=== PATIENT | male | born 1950 | race Caucasian/White ===

== ENCOUNTER 2018-09-23 11:49 | Emergency (ER) | payer OTHER ==
[2018-09-23 13:01] LABS: BASOPHILS % (AUTO) 0.4 % (0.0-5.0); EOSINOPHILS % (AUTO) 3.4 % (0.0-8.0); HEMATOCRIT 35.8 % (42-54); LYMPHOCYTES % (AUTO) 27.1 % (21.0-51.0); MEAN CORPUSCULAR HEMOGLOBIN 31.3 pg (27.0-33.0); MEAN CORPUSCULAR HGB CONC 34.2 g/dL (32.0-36.0); MEAN CORPUSCULAR VOLUME 91.4 fL (79-99); MONOCYTES % (AUTO) 8.1 % (3.0-13.0); NUCLEATED RED BLOOD CELLS 0.1 % (0.0-0.19); PLATELET COUNT (AUTO) 276 K/uL (130-400); RED BLOOD CELL COUNT(AUTO) 3.92 MIL/uL (4.50-6.20); RED CELL DISTRIBUTION WIDTH 13.4 % (11.0-15.5); WHITE BLOOD COUNT (AUTO) 5.3 K/uL (4.8-10.8)
[2018-09-23 13:02] LABS: APPEARANCE,URINE Clear (CLEAR); BILIRUBIN,URINE Small (NEGATIVE); COLOR,URINE Dark Yellow (YELLOW); GLUCOSE, URINE (UA) TRACE mg/dL (NEGATIVE); KETONES,URINE Trace mg/dL (NEGATIVE); LEUKOCYTE ESTERASE ,URINE Negative (NEGATIVE); NITRATE,URINE Negative (NEGATIVE); OCCULT BLOOD,URINE Negative (NEGATIVE); PROTEIN,URINE POS 2+ (NEGATIVE)
[2018-09-23 13:10] LABS: CREATININE 1.5 mg/dL (0.5-1.5); POTASSIUM 3.9 mmol/L (3.5-5.1)
[2018-09-23 13:15] LABS: ALBUMIN 3.4 g/dL (3.5-5.0); BILIRUBIN,TOTAL 0.6 mg/dL (0.2-1.0); TOTAL PROTEIN, SERUM 6.8 g/dL (6.0-8.3)
[2018-09-23 13:30] LABS: BACTERIA,URINE Rare /HPF (None Seen); RBC,URINE None Seen /HPF (0-1); SQUAMOUS EPITHELIAL CELL,UR Rare /HPF (0-2); WBC,URINE 0-1 /HPF (0-1)
== END 2018-09-23 14:10 | disposition home or self-care (01) ==
LOC: EDH 11:49
DX: A09 Infectious gastroenteritis and colitis, unspecified (principal); I10 Essential (primary) hypertension; E11.9 Type 2 diabetes mellitus without complications; Z90.89 Acquired absence of other organs
CPT/HCPCS: 36415; 80053; 81001; 85025

== ENCOUNTER 2018-10-13 15:53 | Emergency (ER) | payer OTHER ==
[2018-10-13] MEDS ORDERED: IPRATROPIUM/ALBUTEROL SULFATE 3 ML SOLUTION IH ONE (16:13)
== END 2018-10-13 17:21 | disposition home or self-care (01) ==
LOC: EDH 15:53
DX: J20.9 Acute bronchitis, unspecified (principal); E11.9 Type 2 diabetes mellitus without complications; I10 Essential (primary) hypertension; Z85.9 Personal history of malignant neoplasm, unspecified; Z98.890 Other specified postprocedural states
CPT/HCPCS: 71046; 82948; 87804; 94640

== ENCOUNTER 2021-10-23 10:27 | Inpatient (IN) | payer MEDICARE ==
[~2021-10-23] VITALS: Ht 172.7 cm; Wt 64.0 kg
[~2021-10-23 10:27] MED LIST: AEC81 PO; ATOR10 PO; LINA5TAB PO; LISI20TA24 PO; METO25 PO; NIFE-40 PO
[2021-10-23 11:11] LABS: BASOPHILS % (AUTO) 0.4 % (0.0-5.0); EOSINOPHILS % (AUTO) 1.3 % (0.0-8.0); HEMATOCRIT 30.7 % (42-54); LYMPHOCYTES % (AUTO) 12.6 % (21.0-51.0); MEAN CORPUSCULAR HEMOGLOBIN 30.3 pg (27.0-33.0); MEAN CORPUSCULAR HGB CONC 32.9 g/dL (32.0-36.0); MEAN CORPUSCULAR VOLUME 92.2 fL (79-99); MONOCYTES % (AUTO) 5.6 % (3.0-13.0); NEUTROPHILS % (AUTO) 79.8 % (40.0-77.0); PLATELET COUNT (AUTO) 182 K/uL (130-400); RED BLOOD CELL COUNT(AUTO) 3.33 MIL/uL (4.50-6.20); RED CELL DISTRIBUTION WIDTH 13.7 % (11.0-15.5); WHITE BLOOD COUNT (AUTO) 7.1 K/uL (4.8-10.8)
[2021-10-23 11:20] LABS: CREATININE 2.3 mg/dL (0.5-1.5); POTASSIUM 4.2 mmol/L (3.5-5.1)
[2021-10-23 11:25] LABS: BILIRUBIN,TOTAL 0.6 mg/dL (0.2-1.0); TOTAL PROTEIN, SERUM 6.4 g/dL (6.0-8.3)
[2021-10-23 11:32] LABS: B-TYPE NATRIURETIC PEPTIDE 2080 pg/mL (0-100)
[2021-10-23] MEDS ORDERED: FUROSEMIDE 40MG VIAL IV ONE (12:00)
[2021-10-23] MEDS ORDERED: ASPIRIN 81MG CHEW TAB PO ONE (12:00)
[2021-10-23] MEDS ORDERED: HYDRALAZINE 25MG TABLET PO ONE (15:00)
[2021-10-23] MEDS ORDERED: FUROSEMIDE 20MG VIAL IV SCH (15:00)
[2021-10-23 15:10] LABS: HEMOGLOBIN A1C 8.5 % (4.0-6.0)
[2021-10-23 15:27] LABS: CRP QUANTITATIVE 7.7 mg/L (0.00-9.0); THYROID STIMULATING HORMONE 1.88 uIU/mL (0.36-3.74)
[2021-10-23] MEDS ORDERED: BUMETANIDE 2.5MG/10ML VIAL 40 ML IV SCH (15:30)
[2021-10-23 15:51] LABS: APPEARANCE,URINE Clear (CLEAR); BILIRUBIN,URINE Negative (NEGATIVE); COLOR,URINE Yellow (YELLOW); GLUCOSE, URINE (UA) TRACE mg/dL (NEGATIVE); KETONES,URINE Negative (NEGATIVE); LEUKOCYTE ESTERASE ,URINE Negative (NEGATIVE); NITRATE,URINE Negative (NEGATIVE); OCCULT BLOOD,URINE Negative (NEGATIVE); PH,URINE 7.5 (5.0-8.0); PROTEIN,URINE POS 1+ mg/dL (NEGATIVE); UROBILINOGEN,URINE 0.2 mg/dL (0.2-1.0)
[2021-10-23 15:58] LABS: AMPHET/METH SCREEN,URINE NEGATIVE (NEGATIVE); BARBITURATE SCREEN, URINE NEGATIVE (NEGATIVE); BENZODIAZEPINES SCREEN,URINE NEGATIVE (NEGATIVE); CANNABINOID SCREEN,URINE NEGATIVE (NEGATIVE); COCAINE SCREEN,URINE NEGATIVE (NEGATIVE); OPIATE SCREEN,URINE NEGATIVE (NEGATIVE); PHENCYCLIDINE SCREEN,URINE NEGATIVE (NEGATIVE)
[2021-10-23 16:06] LABS: BACTERIA,URINE Rare /HPF (None Seen); RBC,URINE 0-1 /HPF (0-1); SQUAMOUS EPITHELIAL CELL,UR Rare /HPF (0-2); WBC,URINE 0-1 /HPF (0-1)
[2021-10-23] MEDS ORDERED: BUMETANIDE 2.5MG/10ML VIAL 80 ML IV SCH (16:30)
[2021-10-23] MEDS ORDERED: NITROGLYCERIN 50MG/D5W 250ML 250 BOT IV SCH ×2 (19:00)
[2021-10-23] MEDS ORDERED: NITROGLYCERIN 50MG/D5W 250ML 1 BOT ONE (19:02)
[2021-10-23 20:27] LABS: CREATININE 2.3 mg/dL (0.5-1.5); POTASSIUM 3.7 mmol/L (3.5-5.1)
[2021-10-23] MEDS ORDERED: HYDRALAZINE 25MG TABLET PO SCH (21:00)
[2021-10-23] MEDS ORDERED: ATORVASTATIN 20 MG TABLET PO SCH (21:00)
[2021-10-23] MEDS ORDERED: METOPROLOL TARTRATE 25 MG TAB PO SCH (21:00)
[2021-10-23] MEDS ORDERED: HEPARIN 5,000 UNIT VIAL SQ SCH (21:00)
[2021-10-24 07:50] LABS: BASOPHILS % (AUTO) 0.1 % (0.0-5.0); EOSINOPHILS % (AUTO) 0.5 % (0.0-8.0); HEMATOCRIT 33.7 % (42-54); MEAN CORPUSCULAR HEMOGLOBIN 29.7 pg (27.0-33.0); MEAN CORPUSCULAR HGB CONC 32.3 g/dL (32.0-36.0); MEAN CORPUSCULAR VOLUME 91.8 fL (79-99); MONOCYTES % (AUTO) 4.1 % (3.0-13.0); PLATELET COUNT (AUTO) 192 K/uL (130-400); RED BLOOD CELL COUNT(AUTO) 3.67 MIL/uL (4.50-6.20); RED CELL DISTRIBUTION WIDTH 13.8 % (11.0-15.5); WHITE BLOOD COUNT (AUTO) 7.6 K/uL (4.8-10.8)
[2021-10-24 08:07] LABS: ALBUMIN 3.3 g/dL (3.5-5.0); BILIRUBIN,TOTAL 0.8 mg/dL (0.2-1.0); CREATININE 2.3 mg/dL (0.5-1.5); MAGNESIUM 1.8 mg/dL (1.80-2.40); PHOSPHORUS 4.4 mg/dL (2.5-4.9); POTASSIUM 4.1 mmol/L (3.5-5.1); TOTAL PROTEIN, SERUM 7.2 g/dL (6.0-8.3)
[2021-10-24 08:14] LABS: % IRON SATURATION 17.6 % (30-44)
[2021-10-24] MEDS ORDERED: ACETAMINOPHEN 325 MG TAB PO PRN (08:30)
[2021-10-24] MEDS ORDERED: AMLODIPINE 5 MG TAB PO SCH (09:00)
[2021-10-24] MEDS ORDERED: METOPROLOL SUCCINATE 50 MG TAB.SR.24H PO SCH (09:00)
[2021-10-24] MEDS ORDERED: ISOSORBIDE MONO 60MG SR TAB PO SCH (09:00)
[2021-10-24] MEDS: LINAGLIPTIN 5 MG TABLET PO SCH (10:30)
[2021-10-24] MEDS: HYDRALAZINE HCL 10 MG TABLET PO SCH ×3 (10:30→20:53)
[2021-10-24] MEDS: Vitamin B Complex/Vit C/Folic Acid PO SCH (10:30)
[2021-10-24] MEDS: ISOSORBIDE MONO 30MG SR TAB PO SCH (10:30)
[2021-10-24] MEDS: ASPIRIN 81 MG EC TAB PO SCH (10:30)
[2021-10-24] MEDS: METOPROLOL SUCCINATE 50 MG TAB.SR.24H PO SCH (10:30)
[2021-10-24] MEDS: BUMETANIDE 1 MG TAB PO SCH (10:30)
[2021-10-24] MEDS: INSULIN HUMULIN R 100 UNIT/ML 3ML SQ SCH ×3 (12:53→20:56)
[2021-10-24] MEDS ORDERED: COMPOUND IV MISC 1 EACH IVSOLN MISC PRN (15:30)
[2021-10-24 16:00] VITALS: BP 140/85
[2021-10-24] MEDS ORDERED: IRON SUCROSE COMPLEX 300 MG in 0.9% NACL 250ML 250 ML IVP SCH (17:00)
[2021-10-24 20:17] VITALS: BP 128/79
[2021-10-24] MEDS ORDERED: ATORVASTATIN 40 MG TABLET PO SCH (21:00)
[2021-10-25] VITALS: BP 134/84
[2021-10-25 04:00] VITALS: BP 133/75
[2021-10-25 04:13] LABS: HEMATOCRIT 28.6 % (42-54); MEAN CORPUSCULAR HEMOGLOBIN 30.4 pg (27.0-33.0); MEAN CORPUSCULAR HGB CONC 32.9 g/dL (32.0-36.0); MEAN CORPUSCULAR VOLUME 92.6 fL (79-99); PLATELET COUNT (AUTO) 178 K/uL (130-400); RED BLOOD CELL COUNT(AUTO) 3.09 MIL/uL (4.50-6.20); RED CELL DISTRIBUTION WIDTH 13.9 % (11.0-15.5); WHITE BLOOD COUNT (AUTO) 7.8 K/uL (4.8-10.8)
[2021-10-25 04:31] LABS: CREATININE 2.8 mg/dL (0.5-1.5)
[2021-10-25 04:33] LABS: BAND NEUTROPHILS % (MANUAL) 2 % (0-2); EOSINOPHILS % (MANUAL) 2 % (1-6); LYMPHOCYTES % (MANUAL) 38 % (22-44); MAN.DIFF COMMENT-IMPRESSION MANUAL DIFFERENTIAL; MONOCYTES % (MANUAL) 4 % (2-9); PLATELET MORPHOLOGY COMMENT ADEQUATE; SEGMENTED NEUTROPHILS % 54 % (40-70)
[2021-10-25 04:52] LABS: POTASSIUM 2.9 mmol/L (3.5-5.1)
[2021-10-25] MEDS ORDERED: POTASSIUM CHLORIDE 10% ELIXIR 20 MEQ/15 ML UDCUP PO ONE (05:00)
[2021-10-25] MEDS: INSULIN HUMULIN R 100 UNIT/ML 3ML SQ SCH ×2 (05:46→12:34)
[2021-10-25 06:51] LABS: ALBUMIN 2.9 g/dL (3.5-5.0); BILIRUBIN,TOTAL 0.6 mg/dL (0.2-1.0); CREATININE 2.9 mg/dL (0.5-1.5); TOTAL PROTEIN, SERUM 6.2 g/dL (6.0-8.3)
[2021-10-25 07:05] LABS: POTASSIUM 2.9 mmol/L (3.5-5.1)
[2021-10-25 07:35] VITALS: BP 148/94
[2021-10-25] MEDS ORDERED: INSULIN GLARGINE 100 UNITS/ML 10 ML VIAL SQ SCH (09:00)
[2021-10-25] MEDS: HYDRALAZINE HCL 10 MG TABLET PO SCH (09:01)
[2021-10-25] MEDS: ASPIRIN 81 MG EC TAB PO SCH (09:01)
[2021-10-25] MEDS: BUMETANIDE 1 MG TAB PO SCH (09:01)
[2021-10-25] MEDS: ISOSORBIDE MONO 30MG SR TAB PO SCH (09:02)
[2021-10-25] MEDS: METOPROLOL SUCCINATE 50 MG TAB.SR.24H PO SCH (09:02)
[2021-10-25] MEDS: LINAGLIPTIN 5 MG TABLET PO SCH (09:02)
[2021-10-25] MEDS: Vitamin B Complex/Vit C/Folic Acid PO SCH (09:02)
[2021-10-25] MEDS ORDERED: BUME1TAB6 PO (10:24)
[2021-10-25] MEDS ORDERED: HYDR-3420 PO (10:24)
[2021-10-25] MEDS ORDERED: Isosorbide Mono 30MG Sr Tab PO (10:24)
[2021-10-25] MEDS ORDERED: METO50TA9 PO (10:24)
[2021-10-25 11:35] VITALS: BP 134/86
== END 2021-10-25 12:56 | disposition home or self-care (01) | DRG 280 ==
LOC: EDH 10:27 → EDHIP 14:48 → 4CH 10-24 17:27
PROVIDERS: ADMIT Internal Medicine; ATTEND Internal Medicine
DX: I13.0 Hypertensive heart and chronic kidney disease with heart failure and stage 1 through stage 4 chronic kidney disease, or unspecified chronic kidney disease (principal); I50.43 Acute on chronic combined systolic (congestive) and diastolic (congestive) heart failure; I21.A1 Myocardial infarction type 2; N17.9 Acute kidney failure, unspecified; N18.4 Chronic kidney disease, stage 4 (severe); Z94.81 Bone marrow transplant status; C90.00 Multiple myeloma not having achieved remission; G91.2 (Idiopathic) normal pressure hydrocephalus; I16.0 Hypertensive urgency; E11.51 Type 2 diabetes mellitus with diabetic peripheral angiopathy without gangrene; E11.22 Type 2 diabetes mellitus with diabetic chronic kidney disease; E87.6 Hypokalemia; F32.A Depression, unspecified; E78.5 Hyperlipidemia, unspecified; D64.9 Anemia, unspecified; E11.65 Type 2 diabetes mellitus with hyperglycemia; Z20.822 Contact with and (suspected) exposure to COVID-19; I25.10 Atherosclerotic heart disease of native coronary artery without angina pectoris; I34.0 Nonrheumatic mitral (valve) insufficiency; I25.5 Ischemic cardiomyopathy; Z79.82 Long term (current) use of aspirin; Z79.84 Long term (current) use of oral hypoglycemic drugs; Z91.14 Patient's other noncompliance with medication regimen; Z83.3 Family history of diabetes mellitus; Z82.49 Family history of ischemic heart disease and other diseases of the circulatory system; Z87.891 Personal history of nicotine dependence; I25.2 Old myocardial infarction
CPT/HCPCS: 36415; 70450; 71045; 71250; 76770; 80048; 80053; 80061; 80305; 81001; 82728; 82948; 83036; 83540; 83550; 83735; 83880; 84100; 84145; 84443; 84484; 85025; 85378; 85651; 86140; 86592; 87635; 87804; 87880; 93005; 93306; 93356; C9803; G0378; J1644; J1756; J1815; J1940; J3490; J7050

== ENCOUNTER 2021-11-27 12:05 | Inpatient (IN) | payer MEDICARE ==
[2021-11-27] VITALS (9 sets, daily range): BP systolic 158–168; BP diastolic 96–118
[~2021-11-27] VITALS: Ht 172.7 cm; Wt 72.3 kg
[~2021-11-27 12:05] MED LIST changes: +BUME1TAB6 PO; +HYDR-3420 PO; +Isosorbide Mono 30MG Sr Tab PO; -METO25 PO; +METO50TA9 PO; -NIFE-40 PO
[2021-11-27 12:44] LABS: BASOPHILS % (AUTO) 0.6 % (0.0-5.0); EOSINOPHILS % (AUTO) 1.8 % (0.0-8.0); HEMATOCRIT 31.3 % (42-54); LYMPHOCYTES % (AUTO) 24.8 % (21.0-51.0); MEAN CORPUSCULAR HEMOGLOBIN 30.5 pg (27.0-33.0); MEAN CORPUSCULAR HGB CONC 33.2 g/dL (32.0-36.0); MEAN CORPUSCULAR VOLUME 91.8 fL (79-99); NEUTROPHILS % (AUTO) 65.7 % (40.0-77.0); PLATELET COUNT (AUTO) 179 K/uL (130-400); RED BLOOD CELL COUNT(AUTO) 3.41 MIL/uL (4.50-6.20); RED CELL DISTRIBUTION WIDTH 13.7 % (11.0-15.5); WHITE BLOOD COUNT (AUTO) 7.1 K/uL (4.8-10.8)
[2021-11-27 13:00] LABS: POTASSIUM 3.8 mmol/L (3.5-5.1)
[2021-11-27 13:05] LABS: ALBUMIN 3.2 g/dL (3.5-5.0); BILIRUBIN,TOTAL 0.6 mg/dL (0.2-1.0); TOTAL PROTEIN, SERUM 6.5 g/dL (6.0-8.3)
[2021-11-27 13:16] LABS: B-TYPE NATRIURETIC PEPTIDE 2130 pg/mL (0-100)
[2021-11-27] MEDS ORDERED: ASPIRIN 325MG EC TAB PO ONE (13:30)
[2021-11-27] MEDS ORDERED: FUROSEMIDE 20MG VIAL IV ONE (14:00)
[2021-11-27] MEDS ORDERED: LABETALOL 20MG SYG IV ONE (15:00)
[2021-11-27 15:16] LABS: APPEARANCE,URINE Clear (CLEAR); BILIRUBIN,URINE Negative (NEGATIVE); COLOR,URINE Yellow (YELLOW); GLUCOSE, URINE (UA) 250 mg/dL (NEGATIVE); KETONES,URINE Negative (NEGATIVE); LEUKOCYTE ESTERASE ,URINE Negative (NEGATIVE); NITRATE,URINE Negative (NEGATIVE); OCCULT BLOOD,URINE Negative (NEGATIVE); PROTEIN,URINE 300 mg/dL (NEGATIVE); UROBILINOGEN,URINE 0.2 mg/dL (0.2-1.0)
[2021-11-27 15:22] LABS: INR 0.93 (0.85-1.15); PROTHROMBIN TIME 10.1 SEC (9.6-11.6)
[2021-11-27 15:23] LABS: PARTIAL THROMBOPLASTIN TIME 24.5 SEC (26.3-35.5)
[2021-11-27 15:24] LABS: AMPHET/METH SCREEN,URINE NEGATIVE (NEGATIVE); BARBITURATE SCREEN, URINE NEGATIVE (NEGATIVE); BENZODIAZEPINES SCREEN,URINE NEGATIVE (NEGATIVE); CANNABINOID SCREEN,URINE NEGATIVE (NEGATIVE); COCAINE SCREEN,URINE NEGATIVE (NEGATIVE); OPIATE SCREEN,URINE NEGATIVE (NEGATIVE); PHENCYCLIDINE SCREEN,URINE NEGATIVE (NEGATIVE)
[2021-11-27 15:50] LABS: BACTERIA,URINE Rare /HPF (None Seen); RBC,URINE 0-1 /HPF (0-1); SQUAMOUS EPITHELIAL CELL,UR None Seen /HPF (0-2); WBC,URINE 0-1 /HPF (0-1)
[2021-11-27 15:57] LABS: HEMOGLOBIN A1C 7.5 % (4.0-6.0)
[2021-11-27] MEDS ORDERED: PANTOPRAZOLE 40 MG TAB DR PO SCH (16:00)
[2021-11-27] MEDS ORDERED: CEFTRIAXONE 1G VIAL IVP ONE (16:30)
[2021-11-27] MEDS: BUMETANIDE 1MG/4ML VIAL IVP SCH ×2 (16:38→21:05)
[2021-11-27] MEDS: NITROGLYCERIN 50MG/D5W 250ML 250 BOT IV SCH (16:41)
[2021-11-27] MEDS ORDERED: CEFTRIAXONE 1G VIAL ONE (17:35)
[2021-11-27 20:31] LABS: CREATININE 1.9 mg/dL (0.5-1.5); MAGNESIUM 2.1 mg/dL (1.80-2.40); POTASSIUM 3.6 mmol/L (3.5-5.1)
[2021-11-27] MEDS: HYDRALAZINE HCL 10 MG TABLET PO SCH (21:05)
[2021-11-27] MEDS ORDERED: KCL 20 MEQ ERTAB PO ONE (22:00)
[2021-11-28] VITALS (39 sets, daily range): BP systolic 108–166; BP diastolic 57–114
[2021-11-28 07:57] LABS: HEMATOCRIT 29.6 % (42-54); MEAN CORPUSCULAR HGB CONC 33.1 g/dL (32.0-36.0); MEAN CORPUSCULAR VOLUME 90.5 fL (79-99); RED BLOOD CELL COUNT(AUTO) 3.27 MIL/uL (4.50-6.20); RED CELL DISTRIBUTION WIDTH 13.7 % (11.0-15.5); WHITE BLOOD COUNT (AUTO) 7.2 K/uL (4.8-10.8)
[2021-11-28 08:12] LABS: CREATININE 2.1 mg/dL (0.5-1.5); MAGNESIUM 1.9 mg/dL (1.80-2.40); PHOSPHORUS 3.3 mg/dL (2.5-4.9); POTASSIUM 3.6 mmol/L (3.5-5.1); URIC ACID 4.7 mg/dL (2.6-7.2)
[2021-11-28 08:18] LABS: % IRON SATURATION 14.8 % (30-44)
[2021-11-28] MEDS ORDERED: KCL 20 MEQ ERTAB PO SCH (08:30)
[2021-11-28] MEDS ORDERED: METOPROLOL SUCCINATE 50 MG TAB.SR.24H PO SCH ×2 (09:00→21:00)
[2021-11-28] MEDS: HYDRALAZINE HCL 10 MG TABLET PO SCH ×3 (09:00→20:06)
[2021-11-28] MEDS ORDERED: BUMETANIDE 1 MG TAB PO SCH (09:00)
[2021-11-28] MEDS: ATORVASTATIN 40 MG TABLET PO SCH (09:19)
[2021-11-28] MEDS: ASPIRIN 81MG CHEW TAB PO SCH (09:20)
[2021-11-28] MEDS: PANTOPRAZOLE 40 MG TAB DR PO SCH (09:21)
[2021-11-28] MEDS: Vitamin B Complex/Vit C/Folic Acid PO SCH (09:21)
[2021-11-28] MEDS: ISOSORBIDE MONO 30MG SR TAB PO SCH (09:22)
[2021-11-28] MEDS: CLOPIDOGREL 75MG TAB PO SCH (10:36)
[2021-11-28] MEDS: AMLODIPINE 5 MG TAB PO SCH (10:36)
[2021-11-28] MEDS: NITROGLYCERIN 50MG/D5W 250ML 250 BOT IV SCH (10:37)
[2021-11-28] MEDS: IRON SUCROSE COMPLEX 300 MG in 0.9%NACL 50ML 50 ML IV SCH (16:05)
[2021-11-28] MEDS: INSULIN HUMULIN R 100 UNIT/ML 3ML SQ SCH ×2 (16:32→19:49)
[2021-11-28] MEDS: TRAZODONE HCL 50 MG TAB PO SCH (20:06)
[2021-11-28] MEDS: METOPROLOL SUCCINATE 50 MG TAB.SR.24H PO SCH (20:06)
[2021-11-29] VITALS (22 sets, daily range): BP systolic 132–182; BP diastolic 78–123
[2021-11-29 04:09] LABS: BASOPHILS % (AUTO) 0.4 % (0.0-5.0); HEMATOCRIT 31.2 % (42-54); LYMPHOCYTES % (AUTO) 21.1 % (21.0-51.0); MEAN CORPUSCULAR HEMOGLOBIN 30.2 pg (27.0-33.0); MEAN CORPUSCULAR VOLUME 91.5 fL (79-99); MONOCYTES % (AUTO) 7.7 % (3.0-13.0); NEUTROPHILS % (AUTO) 68.6 % (40.0-77.0); PLATELET COUNT (AUTO) 189 K/uL (130-400); RED BLOOD CELL COUNT(AUTO) 3.41 MIL/uL (4.50-6.20); RED CELL DISTRIBUTION WIDTH 13.6 % (11.0-15.5); WHITE BLOOD COUNT (AUTO) 8.1 K/uL (4.8-10.8)
[2021-11-29 04:26] LABS: BILIRUBIN,DIRECT 0.1 mg/dL (0.0-0.3); BILIRUBIN,TOTAL 0.6 mg/dL (0.2-1.0); CREATININE 2.5 mg/dL (0.5-1.5); POTASSIUM 3.7 mmol/L (3.5-5.1); TOTAL PROTEIN, SERUM 6.5 g/dL (6.0-8.3)
[2021-11-29] MEDS: INSULIN HUMULIN R 100 UNIT/ML 3ML SQ SCH ×4 (06:56→21:00)
[2021-11-29] MEDS: AMLODIPINE 5 MG TAB PO SCH (07:04)
[2021-11-29] MEDS: ISOSORBIDE MONO 30MG SR TAB PO SCH (07:04)
[2021-11-29] MEDS: ATORVASTATIN 40 MG TABLET PO SCH (09:00)
[2021-11-29] MEDS: PANTOPRAZOLE 40 MG TAB DR PO SCH (09:00)
[2021-11-29] MEDS: ASPIRIN 81MG CHEW TAB PO SCH (09:00)
[2021-11-29] MEDS: BUMETANIDE 1 MG TAB PO SCH (09:00)
[2021-11-29] MEDS: Vitamin B Complex/Vit C/Folic Acid PO SCH (09:00)
[2021-11-29] MEDS: HYDRALAZINE HCL 10 MG TABLET PO SCH ×3 (09:00→21:24)
[2021-11-29] MEDS: CLOPIDOGREL 75MG TAB PO SCH (09:00)
[2021-11-29] MEDS: IRON SUCROSE COMPLEX 300 MG in 0.9%NACL 50ML 50 ML IV SCH (09:11)
[2021-11-29] MEDS: METOPROLOL SUCCINATE 50 MG TAB.SR.24H PO SCH ×2 (09:14→21:24)
[2021-11-29] MEDS ORDERED: REGADENOSON 0.4 MG/5 ML PF SYG IVP SCH (14:30)
[2021-11-29] MEDS: TRAZODONE HCL 50 MG TAB PO SCH (21:23)
[2021-11-30 03:19] VITALS: BP 142/94
[2021-11-30 04:24] LABS: BASOPHILS % (AUTO) 0.3 % (0.0-5.0); EOSINOPHILS % (AUTO) 2.3 % (0.0-8.0); HEMATOCRIT 28.3 % (42-54); LYMPHOCYTES % (AUTO) 23.7 % (21.0-51.0); MEAN CORPUSCULAR HEMOGLOBIN 30.1 pg (27.0-33.0); MEAN CORPUSCULAR HGB CONC 33.2 g/dL (32.0-36.0); MEAN CORPUSCULAR VOLUME 90.7 fL (79-99); MONOCYTES % (AUTO) 10.4 % (3.0-13.0); NEUTROPHILS % (AUTO) 63.2 % (40.0-77.0); PLATELET COUNT (AUTO) 166 K/uL (130-400); RED BLOOD CELL COUNT(AUTO) 3.12 MIL/uL (4.50-6.20); RED CELL DISTRIBUTION WIDTH 13.8 % (11.0-15.5); WHITE BLOOD COUNT (AUTO) 6.8 K/uL (4.8-10.8)
[2021-11-30 04:36] LABS: ALBUMIN 2.7 g/dL (3.5-5.0); BILIRUBIN,TOTAL 0.5 mg/dL (0.2-1.0); MAGNESIUM 1.8 mg/dL (1.80-2.40); PHOSPHORUS 3.5 mg/dL (2.5-4.9); POTASSIUM 3.8 mmol/L (3.5-5.1)
[2021-11-30] MEDS: INSULIN HUMULIN R 100 UNIT/ML 3ML SQ SCH ×2 (06:15→11:30)
[2021-11-30 07:00] VITALS: BP 154/98
[2021-11-30] MEDS ORDERED: Folic Acid/Vitamin B Comp W-C PO (08:55)
[2021-11-30] MEDS ORDERED: Isosorbide Mono 30MG Sr Tab PO (08:55)
[2021-11-30] MEDS ORDERED: CLOP75TA14 PO (08:55)
[2021-11-30] MEDS ORDERED: AMLO5TAB4 PO (08:55)
[2021-11-30] MEDS ORDERED: ATOR40TA69 PO (08:55)
[2021-11-30] MEDS ORDERED: ASPI-1005 PO (08:55)
[2021-11-30] MEDS ORDERED: BUME1TAB6 PO (08:55)
[2021-11-30] MEDS ORDERED: METO-409 PO (08:56)
[2021-11-30] MEDS: ISOSORBIDE MONO 30MG SR TAB PO SCH (09:35)
[2021-11-30] MEDS: HYDRALAZINE HCL 10 MG TABLET PO SCH ×2 (09:36→14:18)
[2021-11-30] MEDS: PANTOPRAZOLE 40 MG TAB DR PO SCH (09:36)
[2021-11-30] MEDS: AMLODIPINE 5 MG TAB PO SCH (09:36)
[2021-11-30] MEDS: Vitamin B Complex/Vit C/Folic Acid PO SCH (09:36)
[2021-11-30] MEDS: ATORVASTATIN 40 MG TABLET PO SCH (09:36)
[2021-11-30] MEDS: CLOPIDOGREL 75MG TAB PO SCH (09:36)
[2021-11-30] MEDS: BUMETANIDE 1 MG TAB PO SCH (09:36)
[2021-11-30] MEDS: METOPROLOL SUCCINATE 50 MG TAB.SR.24H PO SCH (10:09)
[2021-11-30] MEDS: ASPIRIN 81MG CHEW TAB PO SCH (10:10)
[2021-11-30] MEDS: IRON SUCROSE COMPLEX 300 MG in 0.9%NACL 50ML 50 ML IV SCH (10:39)
[2021-11-30 11:00] VITALS: BP 150/90
== END 2021-11-30 16:11 | disposition home or self-care (01) | DRG 291 ==
LOC: EDH 12:05 → EDHIP 15:41 → 2BH 21:08 → 2AH 11-29 11:20
PROVIDERS: ADMIT Hospitalist; ATTEND Hospitalist
DX: I13.0 Hypertensive heart and chronic kidney disease with heart failure and stage 1 through stage 4 chronic kidney disease, or unspecified chronic kidney disease (principal); I50.43 Acute on chronic combined systolic (congestive) and diastolic (congestive) heart failure; J96.01 Acute respiratory failure with hypoxia; N17.9 Acute kidney failure, unspecified; I16.1 Hypertensive emergency; G91.9 Hydrocephalus, unspecified; D84.9 Immunodeficiency, unspecified; F32.2 Major depressive disorder, single episode, severe without psychotic features; Z94.81 Bone marrow transplant status; Z20.822 Contact with and (suspected) exposure to COVID-19; D50.9 Iron deficiency anemia, unspecified; N18.30 Chronic kidney disease, stage 3 unspecified; D63.8 Anemia in other chronic diseases classified elsewhere; E11.22 Type 2 diabetes mellitus with diabetic chronic kidney disease; E78.00 Pure hypercholesterolemia, unspecified; E78.5 Hyperlipidemia, unspecified; F03.90 Unspecified dementia, unspecified severity, without behavioral disturbance, psychotic disturbance, mood disturbance, and anxiety; I25.10 Atherosclerotic heart disease of native coronary artery without angina pectoris; I25.5 Ischemic cardiomyopathy; J44.9 Chronic obstructive pulmonary disease, unspecified; I25.2 Old myocardial infarction; Z63.8 Other specified problems related to primary support group; Z79.899 Other long term (current) drug therapy; Z85.6 Personal history of leukemia; Z92.21 Personal history of antineoplastic chemotherapy; Z91.19 Patient's noncompliance with other medical treatment and regimen; Z91.14 Patient's other noncompliance with medication regimen; Z86.73 Personal history of transient ischemic attack (TIA), and cerebral infarction without residual deficits; Z83.3 Family history of diabetes mellitus; Z82.49 Family history of ischemic heart disease and other diseases of the circulatory system; Z84.89 Family history of other specified conditions
CPT/HCPCS: 36415; 70450; 71045; 76770; 78452; 80048; 80053; 80076; 80305; 81001; 82550; 82728; 82948; 83036; 83540; 83550; 83735; 83874; 83880; 84100; 84145; 84484; 84550; 85025; 85027; 85610; 85651; 85730; 86140; 87635; 87804; 93005; 93017; 96374; A9500; C9803; G0378; J0696; J1756; J1815; J1940; J2785; J3490

== ENCOUNTER 2022-07-03 09:28 | Inpatient (IN) | payer MEDICARE ==
[2022-07-03] VITALS (50 sets, daily range): BP systolic 100–172; BP diastolic 51–120
[~2022-07-03] VITALS: Ht 172.7 cm; Wt 68.0 kg
[~2022-07-03 09:28] MED LIST changes: +AMLO5TAB4 PO; +ASPI-1005 PO; -ATOR10 PO; +ATOR40TA69 PO; +CLOP75TA14 PO; +Folic Acid/Vitamin B Comp W-C PO; -HYDR-3420 PO; -LISI20TA24 PO; +METO-409 PO; -METO50TA9 PO
[2022-07-03] MEDS ORDERED: LIDOCAINE HCL 1% 20 ML VIAL ONE (09:30)
[2022-07-03] MEDS ORDERED: FENTANYL CITRATE PF 50 MCG/1 ML 2ML VIAL ONE (09:31)
[2022-07-03] MEDS ORDERED: IOHEXOL 350 MG/ML 100ML INFUS..BTL IV ONE (09:31)
[2022-07-03] MEDS ORDERED: HEPARIN 10,000 UNIT/10ML (1,000 UNIT/ML) VIAL ONE (09:31)
[2022-07-03] MEDS ORDERED: MIDAZOLAM HCL 1 MG/ML 2ML VIAL ONE (09:31)
[2022-07-03] MEDS ORDERED: NITROGLYCERIN 50MG VIAL ONE (09:31)
[2022-07-03 09:45] LABS: BASOPHILS % (AUTO) 0.2 % (0.0-5.0); HEMATOCRIT 34.8 % (42-54); MEAN CORPUSCULAR HEMOGLOBIN 31.1 pg (27.0-33.0); MEAN CORPUSCULAR HGB CONC 33.6 g/dL (32.0-36.0); MEAN CORPUSCULAR VOLUME 92.6 fL (79-99); MONOCYTES % (AUTO) 4.6 % (3.0-13.0); NEUTROPHILS % (AUTO) 91.8 % (40.0-77.0); PLATELET COUNT (AUTO) 229 K/uL (130-400); RED BLOOD CELL COUNT(AUTO) 3.76 MIL/uL (4.50-6.20); RED CELL DISTRIBUTION WIDTH 13.4 % (11.0-15.5); WHITE BLOOD COUNT (AUTO) 16.1 K/uL (4.8-10.8)
[2022-07-03] MEDS ORDERED: TICAGRELOR 90 MG TABLET ONE (09:49)
[2022-07-03] MEDS ORDERED: LABETALOL 20MG VIAL IV ONE (09:59)
[2022-07-03] MEDS ORDERED: NITROGLYCERIN 50MG/D5W 250ML 250 BOT IV SCH ×2 (10:00→12:00)
[2022-07-03] MEDS: HEPARIN 5,000 UNIT VIAL IV SCH (10:00)
[2022-07-03] MEDS ORDERED: FUROSEMIDE 40MG VIAL IV ONE (10:00)
[2022-07-03 10:06] LABS: INR 1.05 (0.85-1.15); PROTHROMBIN TIME 11.4 SEC (9.6-11.6)
[2022-07-03 10:07] LABS: PARTIAL THROMBOPLASTIN TIME 23.9 SEC (26.3-35.5)
[2022-07-03 10:17] LABS: B-TYPE NATRIURETIC PEPTIDE 2250 pg/mL (0-100)
[2022-07-03 10:19] LABS: ALBUMIN 3.5 g/dL (3.5-5.0); CREATININE 2.6 mg/dL (0.5-1.5); MAGNESIUM 2.1 mg/dL (1.80-2.40); POTASSIUM 4.5 mmol/L (3.5-5.1); TOTAL PROTEIN, SERUM 7.4 g/dL (6.0-8.3)
[2022-07-03] MEDS ORDERED: ATROPINE 1MG SYG IVP ONE (10:19)
[2022-07-03] MEDS ORDERED: METOPROLOL TARTRATE 25 MG TAB PO SCH (11:00)
[2022-07-03] MEDS ORDERED: ONDANSETRON 4MG INJ IVP PRN (12:00)
[2022-07-03] MEDS ORDERED: GLUCAGON 1MG KIT 1 MG ML IM PRN (12:00)
[2022-07-03] MEDS ORDERED: ACETAMINOPHEN 325 MG TAB PO PRN (12:00)
[2022-07-03] MEDS: CEFTRIAXONE 1G VIAL IVP SCH (12:47)
[2022-07-03] MEDS: FUROSEMIDE 40MG VIAL IV SCH ×2 (12:47→22:27)
[2022-07-03] MEDS: AZITHROMYCIN 500MG+NS 250ML IVPB SCH (12:48)
[2022-07-03 13:50] LABS: APPEARANCE,URINE CLOUDY (CLEAR); BILIRUBIN,URINE SMALL mg/dL (NEGATIVE); COLOR,URINE ORANGE (YELLOW); GLUCOSE, URINE (UA) 250 mg/dL (NEGATIVE); KETONES,URINE 5 mg/dL (NEGATIVE); LEUKOCYTE ESTERASE ,URINE TRACE Leu/uL (NEGATIVE); NITRATE,URINE POSITIVE (NEGATIVE); OCCULT BLOOD,URINE LARGE (NEGATIVE); PH,URINE 5.5 (5.0-8.0); PROTEIN,URINE >=300 mg/dL (NEGATIVE); UROBILINOGEN,URINE 0.2 mg/dL (0.2-1.0)
[2022-07-03 14:55] LABS: BACTERIA,URINE Moderate /HPF (None Seen); RBC,URINE T /HPF (0-1)
[2022-07-03] MEDS ORDERED: HEPARIN 25,000 UNITS/250ML D5W 250 ML IV SCH (16:00)
[2022-07-03] MEDS: INSULIN HUMULIN R 100 UNIT/ML 3ML SQ SCH ×2 (16:56→21:06)
[2022-07-03] MEDS: METOPROLOL TARTRATE 25 MG TAB PO SCH (20:49)
[2022-07-03] MEDS ORDERED: FAMOTIDINE 20MG VIAL IV SCH (21:00)
[2022-07-03] MEDS ORDERED: ATORVASTATIN 40 MG TABLET PO SCH (21:00)
[2022-07-03] MEDS ORDERED: TICAGRELOR 90 MG TABLET PO SCH (21:00)
[2022-07-03 23:33] LABS: ABG BASE EXCESS -8.3 mmol/L (-2.0-3.0); ABG HCO3 14.1 mmol/L (21.0-28.0); ABG OXYGEN SATURATION 98.4 % (95.0-99.0); ABG PCO2 21 mmHg (35-48)
[2022-07-04] VITALS (58 sets, daily range): BP systolic 93–167; BP diastolic 57–138
[2022-07-04] MEDS ORDERED: SODIUM BICARB 50MEQ 50ML VIAL IV STA (00:21)
[2022-07-04 01:14] LABS: APPEARANCE,URINE TURBID (CLEAR); BILIRUBIN,URINE NEGATIVE (NEGATIVE); COLOR,URINE RED (YELLOW); GLUCOSE, URINE (UA) 250 mg/dL (NEGATIVE); KETONES,URINE 15 mg/dL (NEGATIVE); LEUKOCYTE ESTERASE ,URINE MODERATE Leu/uL (NEGATIVE); NITRATE,URINE POSITIVE (NEGATIVE); OCCULT BLOOD,URINE LARGE (NEGATIVE); PROTEIN,URINE >=300 mg/dL (NEGATIVE)
[2022-07-04 01:24] LABS: BACTERIA,URINE None Seen /HPF (None Seen); RBC,URINE TNTC /HPF (0-1); SQUAMOUS EPITHELIAL CELL,UR Rare /HPF (0-2)
[2022-07-04] MEDS ORDERED: LORAZEPAM 2 MG/ML 1 ML VIAL IVP STA (01:48)
[2022-07-04 03:51] LABS: BASOPHILS % (AUTO) 0.1 % (0.0-5.0); HEMATOCRIT 29.5 % (42-54); LYMPHOCYTES % (AUTO) 5.4 % (21.0-51.0); MEAN CORPUSCULAR HEMOGLOBIN 30.8 pg (27.0-33.0); MEAN CORPUSCULAR HGB CONC 33.2 g/dL (32.0-36.0); MEAN CORPUSCULAR VOLUME 92.8 fL (79-99); MONOCYTES % (AUTO) 8.9 % (3.0-13.0); NUCLEATED RED BLOOD CELLS 0.1 % (0.0-0.19); PLATELET COUNT (AUTO) 177 K/uL (130-400); RED BLOOD CELL COUNT(AUTO) 3.18 MIL/uL (4.50-6.20); RED CELL DISTRIBUTION WIDTH 13.7 % (11.0-15.5); WHITE BLOOD COUNT (AUTO) 16.8 K/uL (4.8-10.8)
[2022-07-04 04:13] LABS: CREATININE 3.3 mg/dL (0.5-1.5); PHOSPHORUS 4.4 mg/dL (2.5-4.9); POTASSIUM 3.4 mmol/L (3.5-5.1); THYROID STIMULATING HORMONE 1.79 uIU/mL (0.36-3.74); TOTAL PROTEIN, SERUM 6.3 g/dL (6.0-8.3)
[2022-07-04] MEDS: DEXTROSE 50%-WATER 50 ML DISP.SYRIN IV PRN ×3 (04:36→11:15)
[2022-07-04] MEDS: INSULIN HUMULIN R 100 UNIT/ML 3ML SQ SCH ×3 (06:03→18:00)
[2022-07-04 07:51] LABS: ABG BASE EXCESS -2.2 mmol/L (-2.0-3.0); ABG HCO3 19.5 mmol/L (21.0-28.0); ABG OXYGEN SATURATION 94.7 % (95.0-99.0); ABG PCO2 26 mmHg (35-48)
[2022-07-04] MEDS ORDERED: CHLORDIAZEPOXIDE HCL 25 MG CAP PO SCH (08:30)
[2022-07-04] MEDS ORDERED: FUROSEMIDE 40MG VIAL IV SCH (08:30)
[2022-07-04] MEDS: HEPARIN 5,000 UNIT VIAL IV SCH (08:48)
[2022-07-04] MEDS ORDERED: FAMOTIDINE 20MG VIAL IV SCH (09:00)
[2022-07-04] MEDS ORDERED: ASPIRIN 81 MG EC TAB PO SCH (09:00)
[2022-07-04] MEDS: ISOSORBIDE MONO 60MG SR TAB PO SCH (10:01)
[2022-07-04] MEDS: Vitamin B Complex/Vit C/Folic Acid PO SCH (10:01)
[2022-07-04] MEDS: METOPROLOL TARTRATE 25 MG TAB PO SCH ×2 (10:01→21:18)
[2022-07-04] MEDS: METOLAZONE 2.5 MG TABLET PO SCH ×2 (10:01→21:19)
[2022-07-04] MEDS: FUROSEMIDE 40MG VIAL IV SCH ×2 (10:02→23:00)
[2022-07-04] MEDS: FUROSEMIDE 100MG VIAL 100 MG in 0.9%NACL 100ML 100 ML IV SCH ×3 (11:10→23:32)
[2022-07-04] MEDS: AZITHROMYCIN 500MG+NS 250ML IVPB SCH (12:48)
[2022-07-04] MEDS: CEFTRIAXONE 1G VIAL IVP SCH (12:48)
[2022-07-04] MEDS: CHLORDIAZEPOXIDE HCL 25 MG CAP PO SCH ×2 (13:49→21:19)
[2022-07-04 22:19] LABS: BASOPHILS % (AUTO) 0.1 % (0.0-5.0); HEMATOCRIT 27.5 % (42-54); LYMPHOCYTES % (AUTO) 3.9 % (21.0-51.0); MEAN CORPUSCULAR HEMOGLOBIN 31.5 pg (27.0-33.0); MEAN CORPUSCULAR HGB CONC 33.5 g/dL (32.0-36.0); MEAN CORPUSCULAR VOLUME 94.2 fL (79-99); MONOCYTES % (AUTO) 6.1 % (3.0-13.0); NEUTROPHILS % (AUTO) 88.9 % (40.0-77.0); NUCLEATED RED BLOOD CELLS 0.1 % (0.0-0.19); PLATELET COUNT (AUTO) 153 K/uL (130-400); RED BLOOD CELL COUNT(AUTO) 2.92 MIL/uL (4.50-6.20); RED CELL DISTRIBUTION WIDTH 14.4 % (11.0-15.5); WHITE BLOOD COUNT (AUTO) 20.2 K/uL (4.8-10.8)
[2022-07-05] VITALS (24 sets, daily range): BP systolic 94–172; BP diastolic 54–112
[2022-07-05] MEDS: INSULIN HUMULIN R 100 UNIT/ML 3ML SQ SCH ×6 (01:14→18:14)
[2022-07-05 01:48] LABS: BASOPHILS % (AUTO) 0.1 % (0.0-5.0); HEMATOCRIT 28.6 % (42-54); LYMPHOCYTES % (AUTO) 3.7 % (21.0-51.0); MEAN CORPUSCULAR HEMOGLOBIN 31.8 pg (27.0-33.0); MEAN CORPUSCULAR HGB CONC 34.6 g/dL (32.0-36.0); MONOCYTES % (AUTO) 6.5 % (3.0-13.0); NEUTROPHILS % (AUTO) 88.9 % (40.0-77.0); NUCLEATED RED BLOOD CELLS 0.1 % (0.0-0.19); PLATELET COUNT (AUTO) 177 K/uL (130-400); RED BLOOD CELL COUNT(AUTO) 3.11 MIL/uL (4.50-6.20); RED CELL DISTRIBUTION WIDTH 14.6 % (11.0-15.5); WHITE BLOOD COUNT (AUTO) 20.7 K/uL (4.8-10.8)
[2022-07-05 01:51] LABS: ALBUMIN 3.1 g/dL (3.5-5.0); CREATININE 4.2 mg/dL (0.5-1.5); MAGNESIUM 2.3 mg/dL (1.80-2.40); POTASSIUM 5.3 mmol/L (3.5-5.1); TOTAL PROTEIN, SERUM 6.6 g/dL (6.0-8.3)
[2022-07-05] MEDS ORDERED: FUROSEMIDE 40MG VIAL ONE (02:01)
[2022-07-05] MEDS ORDERED: 0.9%NACL 100ML 100 ML ONE (02:01)
[2022-07-05] MEDS: CHLORDIAZEPOXIDE HCL 25 MG CAP PO SCH (05:25)
[2022-07-05 06:57] LABS: BASOPHILS % (AUTO) 0.2 % (0.0-5.0); HEMATOCRIT 26.5 % (42-54); LYMPHOCYTES % (AUTO) 2.5 % (21.0-51.0); MEAN CORPUSCULAR HEMOGLOBIN 31.5 pg (27.0-33.0); MEAN CORPUSCULAR HGB CONC 34.3 g/dL (32.0-36.0); MEAN CORPUSCULAR VOLUME 91.7 fL (79-99); MONOCYTES % (AUTO) 5.4 % (3.0-13.0); NEUTROPHILS % (AUTO) 90.7 % (40.0-77.0); NUCLEATED RED BLOOD CELLS 0.2 % (0.0-0.19); PLATELET COUNT (AUTO) 154 K/uL (130-400); RED BLOOD CELL COUNT(AUTO) 2.89 MIL/uL (4.50-6.20); RED CELL DISTRIBUTION WIDTH 14.4 % (11.0-15.5); WHITE BLOOD COUNT (AUTO) 18.6 K/uL (4.8-10.8)
[2022-07-05 07:17] LABS: ALBUMIN 2.7 g/dL (3.5-5.0); CREATININE 4.9 mg/dL (0.5-1.5); MAGNESIUM 2.2 mg/dL (1.80-2.40); PHOSPHORUS 7.1 mg/dL (2.5-4.9); POTASSIUM 4.3 mmol/L (3.5-5.1)
[2022-07-05] MEDS ORDERED: 0.9% NACL 500ML IV.SOLN 500 ML IV SCH (08:00)
[2022-07-05] MEDS: PANTOPRAZOLE 40 MG/VIAL IVP SCH ×2 (09:05→20:44)
[2022-07-05] MEDS: 0.9%NACL 1000ML 1,000 ML IV SCH ×2 (09:05→20:44)
[2022-07-05] MEDS: THIAMINE HCL 100 MG/ML 2ML VIAL IVP SCH (09:05)
[2022-07-05] MEDS: METOPROLOL TARTRATE 25 MG TAB PO SCH ×2 (09:06→20:44)
[2022-07-05] MEDS: HEPARIN 5,000 UNIT VIAL IV SCH ×2 (09:06→18:43)
[2022-07-05] MEDS: ISOSORBIDE MONO 60MG SR TAB PO SCH (09:06)
[2022-07-05] MEDS: Vitamin B Complex/Vit C/Folic Acid PO SCH (09:06)
[2022-07-05] MEDS: INSULIN GLARGINE 100 UNITS/ML 10 ML VIAL SQ SCH (09:09)
[2022-07-05] MEDS: CEFTRIAXONE 1G VIAL IVP SCH (11:57)
[2022-07-05] MEDS: AZITHROMYCIN 500MG+NS 250ML IVPB SCH (11:57)
[2022-07-05] MEDS ORDERED: HEPARIN 25,000 UNITS/250ML D5W 250 ML IV SCH (17:00)
[2022-07-05] MEDS ORDERED: ASPIRIN 81MG CHEW TAB PO ONE (17:07)
[2022-07-05 18:02] LABS: HEMATOCRIT 27.3 % (42-54)
[2022-07-05 18:13] LABS: INR 1.36 (0.85-1.15); PROTHROMBIN TIME 14.6 SEC (9.6-11.6)
[2022-07-05 18:14] LABS: PARTIAL THROMBOPLASTIN TIME 26.5 SEC (26.3-35.5)
[2022-07-06] VITALS (15 sets, daily range): BP systolic 99–152; BP diastolic 63–94
[2022-07-06] MEDS: INSULIN HUMULIN R 100 UNIT/ML 3ML SQ SCH ×3 (03:00→08:07)
[2022-07-06] MEDS: 0.9%NACL 1000ML 1,000 ML IV SCH (04:06)
[2022-07-06 04:07] LABS: MEAN CORPUSCULAR HEMOGLOBIN 31.2 pg (27.0-33.0); MEAN CORPUSCULAR HGB CONC 33.2 g/dL (32.0-36.0); NUCLEATED RED BLOOD CELLS 0.5 % (0.0-0.19); RED BLOOD CELL COUNT(AUTO) 2.66 MIL/uL (4.50-6.20); RED CELL DISTRIBUTION WIDTH 14.5 % (11.0-15.5); WHITE BLOOD COUNT (AUTO) 17.1 K/uL (4.8-10.8)
[2022-07-06 04:34] LABS: ALBUMIN 2.6 g/dL (3.5-5.0); CREATININE 6.2 mg/dL (0.5-1.5); POTASSIUM 5.6 mmol/L (3.5-5.1); TOTAL PROTEIN, SERUM 5.5 g/dL (6.0-8.3)
[2022-07-06 07:11] LABS: ABG BASE EXCESS -11.2 mmol/L (-2.0-3.0); ABG HCO3 13.4 mmol/L (21.0-28.0); ABG OXYGEN SATURATION 97.5 % (95.0-99.0); ABG PCO2 26 mmHg (35-48)
[2022-07-06 07:59] LABS: ALBUMIN 2.5 g/dL (3.5-5.0); CREATININE 6.3 mg/dL (0.5-1.5); POTASSIUM 4.7 mmol/L (3.5-5.1); TOTAL PROTEIN, SERUM 5.6 g/dL (6.0-8.3)
[2022-07-06] MEDS ORDERED: ASPIRIN 81MG CHEW TAB PO SCH (09:00)
[2022-07-06] MEDS: THIAMINE HCL 100 MG/ML 2ML VIAL IVP SCH (10:39)
[2022-07-06] MEDS: ISOSORBIDE MONO 60MG SR TAB PO SCH (10:39)
[2022-07-06] MEDS: PANTOPRAZOLE 40 MG/VIAL IVP SCH (10:39)
[2022-07-06] MEDS: Vitamin B Complex/Vit C/Folic Acid PO SCH (10:42)
[2022-07-06] MEDS: METOPROLOL TARTRATE 25 MG TAB PO SCH (10:42)
[2022-07-06] MEDS: INSULIN GLARGINE 100 UNITS/ML 10 ML VIAL SQ SCH (10:44)
[2022-07-06] MEDS ORDERED: INSULIN HUMULIN R 100 UNIT/ML 3ML SQ SCH (12:00)
[2022-07-06] MEDS ORDERED: LORAZEPAM 2 MG/ML 1 ML VIAL IVP PRN (12:00)
[2022-07-06] MEDS ORDERED: ACETAMINOPHEN 325 MG TAB PO PRN (12:00)
[2022-07-06] MEDS ORDERED: SCOPOLAMINE HYDROBROMIDE 1 EACH ADH..PATCH TD SCH (12:00)
[2022-07-06] MEDS ORDERED: MORPHINE 20MG/ML SOLN 0.25ML PO PRN ×4 (12:00)
[2022-07-06] MEDS ORDERED: ONDANSETRON 4MG TABLET PO PRN (12:00)
[2022-07-06] MEDS ORDERED: DEXAMETHASONE SOD PHOSPHATE 4 MG/ML 1ML VIAL IVP PRN (12:00)
[2022-07-06] MEDS ORDERED: ACETAMINOPHEN 650 MG SUPPOSITORY RC PRN (12:00)
[2022-07-06] MEDS ORDERED: HALOPERIDOL 1 MG TABLET PO PRN ×2 (12:00)
[2022-07-06] MEDS ORDERED: ONDANSETRON 4MG INJ IVP PRN (12:00)
[2022-07-06] MEDS ORDERED: ARTIFICAL TEARS SOL 15 ML OU PRN (12:00)
[2022-07-06] MEDS ORDERED: ATROPINE SULFATE 5 ML DROPS PO PRN (12:00)
[2022-07-06] MEDS ORDERED: LORAZEPAM 1 MG TABLET PO PRN (12:00)
[2022-07-06] MEDS ORDERED: HALOPERIDOL INJ 5 MG/ML VIAL IV PRN ×2 (12:00)
[2022-07-07] VITALS: BP 157/91
[2022-07-07 03:40] VITALS: BP 136/87
[2022-07-07 08:00] VITALS: BP 144/92
[2022-07-07 16:00] VITALS: BP 138/78
[2022-07-08 04:31] VITALS: BP 143/92
[2022-07-08 07:45] VITALS: BP 148/93
[2022-07-08 20:22] VITALS: BP 139/71
[2022-07-08 23:52] VITALS: BP 118/63
== END 2022-07-09 00:01 | DRG 246 ==
LOC: EDH 09:28 → EDHIP 10:00 → OBSVTOIN 11:17 → 2CH 11:53 → 4BH 07-06 15:49
PROVIDERS: ADMIT Internal Medicine Critical Care Medicine; ATTEND Internal Medicine Critical Care Medicine
PROC: 4A023N7 Measurement of Cardiac Sampling and Pressure, Left Heart, Percutaneous Approach (ICD-10-PCS; principal; 2022-07-03)
PROC: 027035Z Dilation of Coronary Artery, One Artery with Two Drug-eluting Intraluminal Devices, Percutaneous Approach (ICD-10-PCS; 2022-07-03)
PROC: B2111ZZ Fluoroscopy of Multiple Coronary Arteries using Low Osmolar Contrast (ICD-10-PCS; 2022-07-03)
PROC: 02703ZZ Dilation of Coronary Artery, One Artery, Percutaneous Approach (ICD-10-PCS; 2022-07-03)
DX: I21.3 ST elevation (STEMI) myocardial infarction of unspecified site (principal); E43 Unspecified severe protein-calorie malnutrition; G92.8 Other toxic encephalopathy; I50.43 Acute on chronic combined systolic (congestive) and diastolic (congestive) heart failure; J18.9 Pneumonia, unspecified organism; N17.0 Acute kidney failure with tubular necrosis; K72.00 Acute and subacute hepatic failure without coma; I13.0 Hypertensive heart and chronic kidney disease with heart failure and stage 1 through stage 4 chronic kidney disease, or unspecified chronic kidney disease; D62 Acute posthemorrhagic anemia; Z94.81 Bone marrow transplant status; J44.0 Chronic obstructive pulmonary disease with (acute) lower respiratory infection; E87.20 Acidosis, unspecified; Z20.822 Contact with and (suspected) exposure to COVID-19; I25.10 Atherosclerotic heart disease of native coronary artery without angina pectoris; F32.A Depression, unspecified; F10.10 Alcohol abuse, uncomplicated; E88.09 Other disorders of plasma-protein metabolism, not elsewhere classified; E78.00 Pure hypercholesterolemia, unspecified; E11.22 Type 2 diabetes mellitus with diabetic chronic kidney disease; I25.5 Ischemic cardiomyopathy; N18.30 Chronic kidney disease, stage 3 unspecified; Z95.5 Presence of coronary angioplasty implant and graft; Z95.1 Presence of aortocoronary bypass graft; Z91.199 Patient's noncompliance with other medical treatment and regimen due to unspecified reason; Z83.3 Family history of diabetes mellitus; Z82.49 Family history of ischemic heart disease and other diseases of the circulatory system; Z80.7 Family history of other malignant neoplasms of lymphoid, hematopoietic and related tissues; Z80.6 Family history of leukemia; Z66 Do not resuscitate; Z51.5 Encounter for palliative care; I25.2 Old myocardial infarction
CPT/HCPCS: 36415; 36600; 70450; 71045; 76700; 80053; 80061; 81001; 82140; 82270; 82435; 82550; 82803; 82947; 82948; 83036; 83605; 83735; 83874; 83880; 84100; 84132; 84295; 84443; 84484; 84550; 85014; 85018; 85025; 85027; 85378; 85610; 85730; 87040; 87088; 87426; 93005; 93306; 93356; 93454; 94660; 99156; 99157; A4357; C1760; C1887; C1894; C9113; C9606; G0378; J0456; J0461; J0696; J1644; J1815; J1940; J2060; J2250; J3010; J3411; J3490; J7030; J7040; J7070; Q9967